=== PATIENT | female | born 1980 | race Caucasian/White ===

== ENCOUNTER → 2018-11-12 | Day surgery (SDC) | payer SELFPAY ==
[2018-10-27 14:40] VITALS: BMI 27.4
[~2018-11-12] MED LIST: BUPIVACAINE HCL/PF 0.25% (2.5MG/ML) 10 ML VIAL IJ ONE; BUPIVACAINE HCL/PF 2.5 MG/ML - 30 ML VIAL IJ ONE; DESFLURANE GAS 240 ML BOTTLE IH ONE; DEXAMETHASONE SOD PHOSPHATE 4 MG/1 ML VIAL ONE; GENTAMICIN SO4 80 MG/2 ML VIAL ONE; GUM MASTIC/STORAX/MSAL/ALCOHOL 1 DRP DROPSBTL MC ONE; HEPARIN NA (PORCINE) 5,000 UNITS/ML 1ML VIAL ONE; LACTATED RINGERS SOLUTION 1,000 ML IV SCH; LIDOCAINE 1%/EPI 1:100000 (20 ML MULTI DOSE VIAL) IJ ONE; LIDOCAINE 1%/EPI 1:100000 (20 ML MULTI DOSE VIAL) ONE; LIDOCAINE HCL 2% JELLY (5 ML/TUBE) ONE; LIDOCAINE HCL/PF 2% SDV 5ML VIAL ONE; MIDAZOLAM HCL 2 MG/2 ML SINGLE DOSE VIAL ONE; ONDANSETRON 4 MG/2 ML VIAL IVPUSH ONE; ONDANSETRON 4 MG/2 ML VIAL IVPUSH PRN; ONDANSETRON 4 MG/2 ML VIAL ONE; PROPOFOL 20 ML ONE; ROCURONIUM BROMIDE 50 MG/5 ML VIAL ONE; SCOPOLAMINE HYDROBROMIDE 1 PATCH PATCH.TD72 ONE; ceFAZolin SODIUM 1 GM VIAL ONE; fentaNYL CITRATE 250 MCG/5 ML VIAL ONE; oxyCODONE HCL 5 MG TABLET PO PRN
[2018-11-12 17:22] VITALS: PULSE 87
[2018-11-12 17:52] VITALS: BP 121/69; TEMP 97.8
--- NOTE | 2018-11-17 16:05 | PATH ---
Surgical Pathology Report Patient Name: ROBYN SHEPARD [facility]. Rec. #: [id number] /Age/Gender: 1980 (Age: 38) / F Account: [id number] Location: [facility] Taken: 11/12/2018 Received: 11/12/2018 Reported: 11/17/2018 Physicians: Destiny Marrero M.D. Specimen(s) Received A: LEFT BREAST SKIN AND BREAST TISSUE B: RIGHT BREAST SKIN AND BREAST TISSUE Clinical History Cosmetic Final Diagnosis A. LEFT BREAST, SKIN AND BREAST TISSUE, RESECTION: BENIGN BREAST TISSUE WITH FOCAL STROMAL FIBROSIS. THE OVERLYING SKIN WITH NO DIAGNOSTIC ABNORMALITIES. B. RIGHT BREAST, SKIN AND BREAST TISSUE, RESECTION: BENIGN BREAST TISSUE WITH STROMAL FIBROSIS, MICROCYSTS, AND FOCAL DILATED DUCTS. THE OVERLYING SKIN WITH NO DIAGNOSTIC ABNORMALITIES. Electronically Signed Mindy White M.D. Gross Description A. Received in formalin labeled "left breast skin and tissue 280 g," is a 16.0 x 14.5 x 3.0 cm aggregate of multiple unoriented portions of fibroadipose tissue and ricardo, unremarkable skin. Sectioning reveals multifocal dense white fibrous tissue. No definitive mass is identified. Provider Network Analyst sections are submitted in 3 cassettes. B. Received in formalin labeled "right breast skin and tissue 274 g," is a 16.0 x 15.0 x 2.5 cm aggregate of multiple unoriented portions of fibroadipose tissue and ricardo, unremarkable skin. Sectioning reveals multifocal dense white fibrous tissue. No definitive mass is identified. Provider Network Analyst sections are submitted in 3 cassettes. DL/11/16/2018 saudi/11/16/2018
== END | disposition home or self-care (01) ==
LOC: FASU 06:16
PROVIDERS: ATTEND Surgery
PROC: 0H0V0JZ Alteration of Bilateral Breast with Synthetic Substitute, Open Approach (ICD-10-PCS; principal; 2018-11-12 08:00)
DX: Z41.1 Encounter for cosmetic surgery (principal)
CPT/HCPCS: 81025; 88304-TC; 94760; J1644

== ENCOUNTER 2022-03-20 10:37 | Day surgery (SDC) | payer SELFPAY ==
[2022-03-14 14:20] VITALS: BMI 29.2
[2022-03-20] MEDS ORDERED: BUPIVACAINE HCL/PF 2.5 MG/ML - 30 ML VIAL IJ ONE (12:37)
[2022-03-20] MEDS ORDERED: LIDOCAINE HCL 1%, 10 MG/ML (20ML VIAL) ONE ×2 (12:40→13:29)
[2022-03-20] MEDS ORDERED: MIDAZOLAM HCL 2 MG/2 ML SINGLE DOSE VIAL ONE (13:03)
[2022-03-20] MEDS ORDERED: SUCCINYLCHOLINE CHLORIDE 200 MG/10 ML SYRINGE ONE (13:05)
[2022-03-20] MEDS ORDERED: PROPOFOL 20 ML ONE ×7 (13:05→16:51)
[2022-03-20] MEDS ORDERED: ROCURONIUM BROMIDE 50 MG/5 ML SYRINGE ONE (13:05)
[2022-03-20] MEDS ORDERED: LIDOCAINE HCL 2% JELLY (5 ML/TUBE) ONE (13:12)
[2022-03-20] MEDS ORDERED: BACITRACIN 15 GM TUBE TOPICAL OINTMENT ONE (13:42)
[2022-03-20] MEDS ORDERED: HYDROmorphone HCL/PF 1 MG/ML VIAL ONE ×2 (14:24)
[2022-03-20] MEDS ORDERED: BUPIVACAINE HCL/PF 0.25% (2.5MG/ML) 10 ML VIAL IM ONE ×2 (16:34→17:38)
[2022-03-20] MEDS ORDERED: DEXAMETHASONE SOD PHOSPHATE 4 MG/1 ML VIAL ONE (17:11)
[2022-03-20] MEDS ORDERED: ONDANSETRON 4 MG/2 ML VIAL ONE (17:11)
[2022-03-20] MEDS ORDERED: ceFAZolin SODIUM 1 GM VIAL ONE (17:11)
[2022-03-20] MEDS ORDERED: PROMETHAZINE HCL 25 MG/1 ML VIAL IVPUSH PRN (17:30)
[2022-03-20] MEDS ORDERED: ONDANSETRON 4 MG/2 ML VIAL IVPUSH PRN (17:30)
[2022-03-20] MEDS ORDERED: ACETAMINOPHEN 325 MG TABLET (FP) PO PRN (17:30)
[2022-03-20] MEDS ORDERED: oxyCODONE HCL 5 MG TABLET PO PRN ×2 (17:30)
[2022-03-20] MEDS ORDERED: FENTANYL CITRATE/PF 50 MCG/ML VIAL ONE (17:48)
[2022-03-20] MEDS ORDERED: ACETAMINOPHEN INJECTION 100 ML IVPB ONE (18:33)
[2022-03-20] MEDS ORDERED: ACETAMINOPHEN 1000 MG/100 ML BAG IVPB ONE ×2 (18:35→18:38)
[2022-03-20 19:00] VITALS: TEMP 97.8
[2022-03-20 19:29] VITALS: BP 110/54; PULSE 78
== END 2022-03-20 19:30 | disposition home or self-care (01) ==
LOC: FASU 10:37
PROVIDERS: ATTEND Surgery
CPT/HCPCS: 84703; 94760